=== PATIENT | female | born 1955 | race Hispanic/Latino ===

== ENCOUNTER → 2017-12-15 | Outpatient (CLI) | payer MEDICAID ==
[~2017-12-15] MED LIST: ASPI-1197 PO; FURO40TA7 PO; METO-408 PO; MIDO2.5T PO; SPIR25TA4 PO
== END | disposition home or self-care (01) ==
LOC: SHCH 13:53
PROVIDERS: ATTEND Internal Medicine Cardiovascular Disease
DX: I10 Essential (primary) hypertension (principal)
CPT/HCPCS: 93306

== ENCOUNTER → 2017-12-24 | Outpatient (CLI) | payer MEDICAID ==
[~2017-12-24] MED LIST changes: +REGADENOSON 0.4 MG/5 ML PF SYG IVP SCH
== END | disposition home or self-care (01) ==
LOC: SHCH 12:44
PROVIDERS: ATTEND Internal Medicine Cardiovascular Disease
DX: I10 Essential (primary) hypertension (principal)
CPT/HCPCS: 78452; 93017; 96374; A9500 ×2; J2785

== ENCOUNTER → 2018-05-07 | Outpatient (CLI) | payer MEDICAID ==
[~2018-05-07] MED LIST changes: -REGADENOSON 0.4 MG/5 ML PF SYG IVP SCH; -SPIR25TA4 PO; +SPIR25TA6 PO
== END | disposition home or self-care (01) ==
LOC: RAH 09:25
PROVIDERS: ATTEND Internal Medicine Gastroenterology
DX: K21.9 Gastro-esophageal reflux disease without esophagitis (principal)
CPT/HCPCS: 74240

== ENCOUNTER 2018-08-23 13:14 | Inpatient (IN) | payer MEDICAID ==
[~2018-08-23] VITALS: Ht 162.6 cm; Wt 73.9 kg
[2018-08-23] MEDS ORDERED: TRAZ-185 PO (14:39)
[2018-08-23] MEDS ORDERED: ESOM40CA PO (14:39)
[2018-08-23] MEDS ORDERED: CEPH500C2 PO (14:39)
[2018-08-23] MEDS ORDERED: SPIR100T5 PO (14:39)
[2018-08-23] MEDS ORDERED: DOCU-282 PO (14:39)
[2018-08-23] MEDS ORDERED: MAGN64TA9 PO (14:39)
[2018-08-23 15:10] LABS: BASOPHILS % (AUTO) 0.8 % (0.0-5.0); EOSINOPHILS % (AUTO) 1.8 % (0.0-8.0); HEMATOCRIT 25.2 % (36-48); LYMPHOCYTES % (AUTO) 19.2 % (21.0-51.0); MEAN CORPUSCULAR HEMOGLOBIN 22.9 pg (27.0-33.0); NEUTROPHILS % (AUTO) 66.2 % (40.0-77.0); NUCLEATED RED BLOOD CELLS 0.1 % (0.0-0.19); PLATELET COUNT (AUTO) 82 K/uL (130-400); RED CELL DISTRIBUTION WIDTH 19.3 % (11.0-15.5); WHITE BLOOD COUNT (AUTO) 2.5 K/uL (4.8-10.8)
[2018-08-23 15:21] LABS: CREATININE 1.5 mg/dL (0.5-1.5); POTASSIUM 4.1 mmol/L (3.5-5.1)
[2018-08-23 15:25] LABS: ALBUMIN 3.4 g/dL (3.5-5.0); BILIRUBIN,TOTAL 1.1 mg/dL (0.2-1.0); INR 1.17 (0.85-1.15); PARTIAL THROMBOPLASTIN TIME 31.2 SEC (26.3-35.5); PROTHROMBIN TIME 12.2 SEC (9.6-11.6); TOTAL PROTEIN, SERUM 7.9 g/dL (6.0-8.3)
[2018-08-23 15:46] LABS: BASOPHILS % (MANUAL) 2 % (0-2); LYMPHOCYTES % (MANUAL) 17 % (22-44); MONOCYTES % (MANUAL) 9 % (2-9); SEGMENTED NEUTROPHILS % 72 % (40-70)
[2018-08-23 15:50] LABS: PLATELET MORPHOLOGY COMMENT GIANT PLTS PRESENT
[2018-08-23 16:00] LABS: B-TYPE NATRIURETIC PEPTIDE 1370 pg/mL (0-100)
[2018-08-23] MEDS ORDERED: FUROSEMIDE 10 MG/ML 2ML VIAL ONE (17:20)
[2018-08-23 19:35] VITALS: BP 158/86
[2018-08-23] MEDS ORDERED: LIDOCAINE HCL-MPF 1% 2ML VIAL IJ PRN ×2 (20:15→21:15)
[2018-08-23] MEDS ORDERED: MORPHINE SULFATE 2 MG/ML 1ML SYG IVP PRN (20:15)
[2018-08-23] MEDS ORDERED: POTASSIUM CHLORIDE 10MEQ/100ML 100 ML IV PRN (20:15)
[2018-08-23] MEDS: PHARMACY COMMUNICATION MISC SCH (21:00)
[2018-08-23] MEDS ORDERED: POTASSIUM CHLORIDE 20MEQ/100ML 100 ML IV PRN (21:15)
[2018-08-23] MEDS ORDERED: POTASSIUM CHLORIDE 20 MEQ ERTAB PO PRN (21:15)
[2018-08-23] MEDS ORDERED: DIPHENHYDRAMINE HCL 25 MG CAPSULE PO PRN (21:15)
[2018-08-23] MEDS ORDERED: LACTULOSE 20 GM/30 ML UDCUP PO PRN (21:15)
[2018-08-23] MEDS ORDERED: GLUCAGON 1MG KIT 1 MG ML IM PRN (21:15)
[2018-08-23] MEDS ORDERED: CLONIDINE HCL 0.1 MG TABLET PO PRN (21:15)
[2018-08-23] MEDS ORDERED: POTASSIUM CHLORIDE 10% ELIXIR 20 MEQ/15 ML UDCUP PO PRN (21:15)
[2018-08-23] MEDS ORDERED: DEXTROSE 50%-WATER 50 ML DISP.SYRIN IV PRN (21:15)
[2018-08-23] MEDS ORDERED: METOPROLOL TARTRATE 25 MG TAB PO ONE (22:20)
[2018-08-23 23:27] VITALS: BP 116/46
[2018-08-24] MEDS ORDERED: ONDANSETRON HCL MDV 20ML 2 MG/ML VIAL IVP PRN (00:45)
[2018-08-24] MEDS ORDERED: FUROSEMIDE 10 MG/ML 2ML VIAL IVP SCH (01:00)
[2018-08-24 03:24] VITALS: BP 128/46
[2018-08-24 04:24] LABS: ALBUMIN 3.3 g/dL (3.5-5.0); BILIRUBIN,TOTAL 0.8 mg/dL (0.2-1.0); CREATININE 1.5 mg/dL (0.5-1.5); TOTAL PROTEIN, SERUM 7.9 g/dL (6.0-8.3); TROPONIN I 0.04 ng/mL (0.00-0.06)
[2018-08-24] MEDS: INSULIN R PO SSI SQ SCH ×4 (06:14→20:53)
[2018-08-24 07:33] VITALS: BP 149/41
[2018-08-24] MEDS: PHARMACY COMMUNICATION MISC SCH ×3 (08:58→20:53)
[2018-08-24] MEDS: METOLAZONE 2.5 MG TABLET PO SCH (09:01)
[2018-08-24] MEDS: FUROSEMIDE 10 MG/ML 2ML VIAL IVP SCH ×2 (09:01→16:14)
[2018-08-24] MEDS: METOPROLOL TARTRATE 25 MG TAB PO SCH ×4 (09:01→20:53)
[2018-08-24] MEDS ORDERED: LIDOCAINE HCL 1% 20 ML VIAL ONE (09:13)
[2018-08-24] MEDS: MAGNESIUM CHLORIDE 70 MG TABLET.SA PO SCH (09:37)
[2018-08-24] MEDS: PANTOPRAZOLE SODIUM 40 MG TABLET.DR PO SCH (09:39)
[2018-08-24] MEDS: DOCUSATE SODIUM 100 MG CAP PO SCH (09:40)
[2018-08-24] MEDS: SPIRONOLACTONE 25 MG TAB PO SCH (09:40)
[2018-08-24 11:26] VITALS: BP 120/46
[2018-08-24 12:19] LABS: APPEARANCE BODY FLUID CLEAR (CLEAR); COLOR,BODY FLUID LT YELLOW (LT YELLOW); SPECIMENTYPE,BODY FLUID THORACENTESIS; TOTAL VOLUME,BODY FLUID 536 mL
[2018-08-24 12:20] LABS: BODY FLUID RBC 1300 /cu. mm.; BODY FLUID WBC 98 /cu. mm.
[2018-08-24 12:23] LABS: BF BASOPHIL 1 %; BF LYMPHOCYTE 36 %; BF MESOTHELIAL 30 %; BF MONOCYTE 5 %
[2018-08-24 16:45] VITALS: BP 130/58
[2018-08-24] MEDS: ACETAMINOPHEN 325 MG TAB PO PRN (16:56)
[2018-08-24 19:38] VITALS: BP 150/57
[2018-08-24] MEDS: TRAZODONE HCL 50 MG TAB PO SCH (20:52)
[2018-08-24] MEDS: HYDROCODONE/ACETAMINOPHEN 5/325 MG TAB PO PRN (23:45)
[2018-08-24 23:53] VITALS: BP 109/56
[2018-08-25] MEDS: FUROSEMIDE 10 MG/ML 2ML VIAL IVP SCH ×3 (00:41→20:24)
[2018-08-25 03:40] LABS: B-TYPE NATRIURETIC PEPTIDE 1340 pg/mL (0-100)
[2018-08-25 03:42] LABS: CREATININE 1.5 mg/dL (0.5-1.5); POTASSIUM 3.9 mmol/L (3.5-5.1)
[2018-08-25 03:43] VITALS: BP 118/40
[2018-08-25 03:46] LABS: BASOPHILS % (AUTO) 0.7 % (0.0-5.0); EOSINOPHILS % (AUTO) 2.7 % (0.0-8.0); HEMATOCRIT 24.6 % (36-48); LYMPHOCYTES % (AUTO) 21.3 % (21.0-51.0); MEAN CORPUSCULAR HEMOGLOBIN 21.9 pg (27.0-33.0); MEAN CORPUSCULAR HGB CONC 29.4 g/dL (32.0-36.0); MEAN CORPUSCULAR VOLUME 74.5 fL (79-99); MONOCYTES % (AUTO) 12.2 % (3.0-13.0); NEUTROPHILS % (AUTO) 63.1 % (40.0-77.0); NUCLEATED RED BLOOD CELLS 0.2 % (0.0-0.19); PLATELET COUNT (AUTO) 66 K/uL (130-400); RED CELL DISTRIBUTION WIDTH 19.2 % (11.0-15.5)
[2018-08-25 04:44] LABS: EOSINOPHILS % (MANUAL) 4 % (1-6); LYMPHOCYTES % (MANUAL) 22 % (22-44); MONOCYTES % (MANUAL) 8 % (2-9); REACTIVE LYMPHOCYTES 1 % (0-0); SEGMENTED NEUTROPHILS % 65 % (40-70)
[2018-08-25 04:46] LABS: MAN.DIFF COMMENT-IMPRESSION MANUAL DIFFERENTIAL
[2018-08-25 04:48] LABS: PLATELET MORPHOLOGY COMMENT DECREASED
[2018-08-25] MEDS: INSULIN R PO SSI SQ SCH ×4 (05:35→21:00)
[2018-08-25] MEDS: PANTOPRAZOLE SODIUM 40 MG TABLET.DR PO SCH (06:26)
[2018-08-25 07:30] VITALS: BP 116/51
[2018-08-25] MEDS ORDERED: LIDOCAINE HCL 1% 20 ML VIAL ONE (08:51)
[2018-08-25] MEDS: PHARMACY COMMUNICATION MISC SCH ×3 (09:00→21:00)
[2018-08-25] MEDS: METOPROLOL TARTRATE 25 MG TAB PO SCH ×4 (09:00→21:00)
[2018-08-25] MEDS: SPIRONOLACTONE 25 MG TAB PO SCH (09:39)
[2018-08-25] MEDS: HYDROCODONE/ACETAMINOPHEN 5/325 MG TAB PO PRN (09:39)
[2018-08-25] MEDS: METOLAZONE 2.5 MG TABLET PO SCH (09:39)
[2018-08-25] MEDS: DOCUSATE SODIUM 100 MG CAP PO SCH (09:39)
[2018-08-25] MEDS: MAGNESIUM CHLORIDE 70 MG TABLET.SA PO SCH (09:43)
[2018-08-25 13:24] LABS: APPEARANCE BODY FLUID CLEAR (CLEAR); BODY FLUID RBC 100 /cu. mm.; BODY FLUID WBC 77 /cu. mm.; COLOR,BODY FLUID YELLOW (LT YELLOW); SPECIMENTYPE,BODY FLUID PLEURAL; TOTAL VOLUME,BODY FLUID 1200 mL
[2018-08-25 13:37] LABS: BF LYMPHOCYTE 51 %; BF MESOTHELIAL 31 %; BF MONOCYTE 13 %
[2018-08-25 16:18] VITALS: BP 103/36
[2018-08-25 20:00] VITALS: BP 121/46
[2018-08-25] MEDS: TRAZODONE HCL 50 MG TAB PO SCH (20:23)
[2018-08-26] VITALS (7 sets, daily range): BP systolic 108–119; BP diastolic 40–56
[2018-08-26 03:55] LABS: CREATININE 1.7 mg/dL (0.5-1.5); POTASSIUM 4.3 mmol/L (3.5-5.1)
[2018-08-26] MEDS: PANTOPRAZOLE SODIUM 40 MG TABLET.DR PO SCH (06:42)
[2018-08-26] MEDS: INSULIN R PO SSI SQ SCH ×4 (07:30→21:00)
[2018-08-26] MEDS: PHARMACY COMMUNICATION MISC SCH (08:21)
[2018-08-26] MEDS: DOCUSATE SODIUM 100 MG CAP PO SCH (10:01)
[2018-08-26] MEDS: SPIRONOLACTONE 25 MG TAB PO SCH (10:07)
[2018-08-26] MEDS: METOLAZONE 2.5 MG TABLET PO SCH (10:07)
[2018-08-26] MEDS: METOPROLOL TARTRATE 25 MG TAB PO SCH (10:08)
[2018-08-26] MEDS: FUROSEMIDE 10 MG/ML 2ML VIAL IVP SCH ×2 (10:08→20:22)
[2018-08-26] MEDS: MAGNESIUM CHLORIDE 70 MG TABLET.SA PO SCH (10:08)
[2018-08-26] MEDS: TRAZODONE HCL 50 MG TAB PO SCH (20:21)
[2018-08-27 03:33] LABS: HEMATOCRIT 22.4 % (36-48); MEAN CORPUSCULAR HEMOGLOBIN 22.6 pg (27.0-33.0); MEAN CORPUSCULAR HGB CONC 30.7 g/dL (32.0-36.0); MEAN CORPUSCULAR VOLUME 73.6 fL (79-99); PLATELET COUNT (AUTO) 74 K/uL (130-400); RED BLOOD CELL COUNT(AUTO) 3.04 MIL/uL (4.00-5.50); RED CELL DISTRIBUTION WIDTH 19.1 % (11.0-15.5)
[2018-08-27 03:45] LABS: INR 1.2 (0.85-1.15); PARTIAL THROMBOPLASTIN TIME 29.5 SEC (26.3-35.5); PROTHROMBIN TIME 12.6 SEC (9.6-11.6)
[2018-08-27 03:51] VITALS: BP 120/43
[2018-08-27 03:57] LABS: ALBUMIN 2.8 g/dL (3.5-5.0); BILIRUBIN,TOTAL 0.7 mg/dL (0.2-1.0); CREATININE 1.8 mg/dL (0.5-1.5); MAGNESIUM 1.6 mg/dL (1.80-2.40); POTASSIUM 4.1 mmol/L (3.5-5.1); THYROID STIMULATING HORMONE 1.87 uIU/mL (0.36-3.74); TOTAL PROTEIN, SERUM 6.9 g/dL (6.0-8.3)
[2018-08-27] MEDS: PANTOPRAZOLE SODIUM 40 MG TABLET.DR PO SCH (06:07)
[2018-08-27 07:27] VITALS: BP 126/50
[2018-08-27] MEDS: INSULIN R PO SSI SQ SCH ×4 (07:30→21:00)
[2018-08-27] MEDS ORDERED: FUROSEMIDE 10 MG/ML 4ML VIAL IV SCH (08:00)
[2018-08-27] MEDS: SPIRONOLACTONE 25 MG TAB PO SCH (08:49)
[2018-08-27] MEDS: FUROSEMIDE 10 MG/ML 2ML VIAL IVP SCH ×2 (08:49→22:19)
[2018-08-27] MEDS: DOCUSATE SODIUM 100 MG CAP PO SCH (08:49)
[2018-08-27] MEDS: HYDROCODONE/ACETAMINOPHEN 5/325 MG TAB PO PRN ×2 (08:50→22:26)
[2018-08-27] MEDS: MAGNESIUM CHLORIDE 70 MG TABLET.SA PO SCH (08:53)
[2018-08-27 11:31] VITALS: BP 104/54
[2018-08-27] MEDS ORDERED: BENZOCAINE/MENTH/CETYLPYRD CL 1 EACH LOZENGE MM PRN (15:15)
[2018-08-27 16:32] VITALS: BP 114/49
[2018-08-27] MEDS: IPRATROPIUM/ALBUTEROL SULFATE 3 ML SOLUTION IH SCH ×2 (18:42→23:13)
[2018-08-27] MEDS: ACETAMINOPHEN 325 MG TAB PO PRN (18:57)
[2018-08-27 19:35] VITALS: BP 129/55
[2018-08-27] MEDS: TRAZODONE HCL 50 MG TAB PO SCH (22:19)
[2018-08-27 23:51] VITALS: BP 105/48
[2018-08-28 03:59] VITALS: BP 125/48
[2018-08-28 04:04] LABS: CREATININE 1.6 mg/dL (0.5-1.5); POTASSIUM 4.1 mmol/L (3.5-5.1)
[2018-08-28 04:33] LABS: % IRON SATURATION 7.8 % (22-44)
[2018-08-28] MEDS: IPRATROPIUM/ALBUTEROL SULFATE 3 ML SOLUTION IH SCH ×3 (06:01→19:40)
[2018-08-28] MEDS: PANTOPRAZOLE SODIUM 40 MG TABLET.DR PO SCH (06:34)
[2018-08-28] MEDS: INSULIN R PO SSI SQ SCH ×4 (06:34→21:00)
[2018-08-28 07:37] LABS: HEMATOCRIT 25.2 % (36-48); MEAN CORPUSCULAR HGB CONC 30.9 g/dL (32.0-36.0); MEAN CORPUSCULAR VOLUME 74.6 fL (79-99); NUCLEATED RED BLOOD CELLS 0.2 % (0.0-0.19); PLATELET COUNT (AUTO) 60 K/uL (130-400); RED BLOOD CELL COUNT(AUTO) 3.38 MIL/uL (4.00-5.50); RED CELL DISTRIBUTION WIDTH 18.7 % (11.0-15.5); WHITE BLOOD COUNT (AUTO) 2.5 K/uL (4.8-10.8)
[2018-08-28 07:48] VITALS: BP 121/41
[2018-08-28 08:19] LABS: LYMPHOCYTES % (MANUAL) 22 % (22-44); MONOCYTES % (MANUAL) 7 % (2-9)
[2018-08-28 08:21] LABS: PLATELET MORPHOLOGY COMMENT DECREASED; SEGMENTED NEUTROPHILS % 71 % (40-70)
[2018-08-28 08:22] LABS: MAN.DIFF COMMENT-IMPRESSION MANUAL DIFFERENTIAL
[2018-08-28] MEDS: MAGNESIUM CHLORIDE 70 MG TABLET.SA PO SCH (10:35)
[2018-08-28] MEDS: DOCUSATE SODIUM 100 MG CAP PO SCH (10:35)
[2018-08-28] MEDS: SPIRONOLACTONE 25 MG TAB PO SCH (10:35)
[2018-08-28] MEDS: FUROSEMIDE 10 MG/ML 2ML VIAL IVP SCH ×2 (10:36→21:35)
[2018-08-28 11:29] VITALS: BP 122/52
[2018-08-28 16:22] VITALS: BP 118/51
[2018-08-28] MEDS: TRAZODONE HCL 50 MG TAB PO SCH (21:35)
[2018-08-28 23:41] VITALS: BP 100/49
[2018-08-29] MEDS: IPRATROPIUM/ALBUTEROL SULFATE 3 ML SOLUTION IH SCH
[2018-08-29] MEDS ORDERED: METOPROLOL TARTRATE 25 MG TAB ONE (00:29)
[2018-08-29] MEDS: METOPROLOL TARTRATE 25 MG TAB PO SCH ×3 (00:30→19:47)
[2018-08-29 03:33] VITALS: BP 99/56
[2018-08-29] MEDS: INSULIN R PO SSI SQ SCH ×4 (06:21→21:00)
[2018-08-29] MEDS: PANTOPRAZOLE SODIUM 40 MG TABLET.DR PO SCH (06:25)
[2018-08-29 07:51] VITALS: BP 103/57
[2018-08-29] MEDS: DOCUSATE SODIUM 100 MG CAP PO SCH (09:21)
[2018-08-29] MEDS: SPIRONOLACTONE 25 MG TAB PO SCH (09:22)
[2018-08-29] MEDS: FUROSEMIDE 10 MG/ML 2ML VIAL IVP SCH ×2 (09:22→19:48)
[2018-08-29] MEDS: MAGNESIUM CHLORIDE 70 MG TABLET.SA PO SCH (09:28)
[2018-08-29] MEDS: IPRATROPIUM 0.5 MG/2.5 ML INH IH SCH ×3 (11:22→23:39)
[2018-08-29 11:39] VITALS: BP 105/51
[2018-08-29 17:08] VITALS: BP 107/46
[2018-08-29 19:00] VITALS: BP 100/49
[2018-08-29] MEDS: HYDROCODONE/ACETAMINOPHEN 5/325 MG TAB PO PRN (19:48)
[2018-08-29] MEDS: TRAZODONE HCL 50 MG TAB PO SCH (19:48)
[2018-08-29 23:00] VITALS: BP 108/50
[2018-08-30] MEDS: METOPROLOL TARTRATE 25 MG TAB PO SCH ×4 (00:30→23:52)
[2018-08-30 03:00] VITALS: BP 95/51
[2018-08-30] MEDS: INSULIN R PO SSI SQ SCH ×4 (04:20→20:52)
[2018-08-30] MEDS: IPRATROPIUM 0.5 MG/2.5 ML INH IH SCH ×4 (06:25→23:36)
[2018-08-30] MEDS: PANTOPRAZOLE SODIUM 40 MG TABLET.DR PO SCH (06:49)
[2018-08-30 07:37] VITALS: BP 99/46
[2018-08-30] MEDS: MAGNESIUM CHLORIDE 70 MG TABLET.SA PO SCH (08:12)
[2018-08-30] MEDS: SPIRONOLACTONE 25 MG TAB PO SCH (08:12)
[2018-08-30] MEDS: DOCUSATE SODIUM 100 MG CAP PO SCH (08:12)
[2018-08-30] MEDS: FUROSEMIDE 10 MG/ML 2ML VIAL IVP SCH ×2 (08:16→21:43)
[2018-08-30 11:19] VITALS: BP 106/56
[2018-08-30] MEDS ORDERED: ALBU1.252 IH (14:52)
[2018-08-30] MEDS ORDERED: IPRNEB IH (14:52)
[2018-08-30] MEDS ORDERED: PROP10TA10 PO (14:52)
[2018-08-30] MEDS ORDERED: LACT10SO PO (14:52)
[2018-08-30 16:18] VITALS: BP 94/45
[2018-08-30 19:54] VITALS: BP 98/51
[2018-08-30] MEDS: TRAZODONE HCL 50 MG TAB PO SCH (20:48)
[2018-08-30 23:35] VITALS: BP 120/56
[2018-08-31 04:06] VITALS: BP 106/49
[2018-08-31] MEDS: INSULIN R PO SSI SQ SCH (05:22)
[2018-08-31] MEDS: PANTOPRAZOLE SODIUM 40 MG TABLET.DR PO SCH (06:01)
[2018-08-31] MEDS: IPRATROPIUM 0.5 MG/2.5 ML INH IH SCH ×2 (06:29→11:21)
[2018-08-31 07:45] VITALS: BP 96/65
[2018-08-31] MEDS: DOCUSATE SODIUM 100 MG CAP PO SCH (09:10)
[2018-08-31] MEDS: FUROSEMIDE 10 MG/ML 2ML VIAL IVP SCH (09:11)
[2018-08-31] MEDS: MAGNESIUM CHLORIDE 70 MG TABLET.SA PO SCH (09:11)
[2018-08-31] MEDS: METOPROLOL TARTRATE 25 MG TAB PO SCH (09:11)
[2018-08-31] MEDS: SPIRONOLACTONE 25 MG TAB PO SCH (09:11)
[2018-08-31 12:14] VITALS: BP 156/53
== END 2018-08-31 12:27 | disposition home or self-care (01) | DRG 194 ==
LOC: EDH 13:14 → EDHIP 14:55 → UNDOADMIN 14:55 → 2BH 18:59 → EDHIP 18:59 → 2DH 08-25 18:21
PROVIDERS: ADMIT Internal Medicine Critical Care Medicine; ATTEND Internal Medicine Critical Care Medicine
PROC: 0W9B3ZZ Drainage of Left Pleural Cavity, Percutaneous Approach (ICD-10-PCS; principal; 2018-08-24)
PROC: 0W993ZZ Drainage of Right Pleural Cavity, Percutaneous Approach (ICD-10-PCS; 2018-08-25)
PROC: 30233N1 Transfusion of Nonautologous Red Blood Cells into Peripheral Vein, Percutaneous Approach (ICD-10-PCS; 2018-08-27)
DX: I13.0 Hypertensive heart and chronic kidney disease with heart failure and stage 1 through stage 4 chronic kidney disease, or unspecified chronic kidney disease (principal); J96.01 Acute respiratory failure with hypoxia; E43 Unspecified severe protein-calorie malnutrition; D61.818 Other pancytopenia; D68.9 Coagulation defect, unspecified; J90 Pleural effusion, not elsewhere classified; E66.01 Morbid (severe) obesity due to excess calories; K76.6 Portal hypertension; I50.33 Acute on chronic diastolic (congestive) heart failure; J94.8 Other specified pleural conditions; D69.6 Thrombocytopenia, unspecified; K74.60 Unspecified cirrhosis of liver; N18.3 Chronic kidney disease, stage 3 (moderate); D50.9 Iron deficiency anemia, unspecified; D73.1 Hypersplenism; Z68.28 Body mass index [BMI] 28.0-28.9, adult; R22.2 Localized swelling, mass and lump, trunk; Z85.3 Personal history of malignant neoplasm of breast; D64.9 Anemia, unspecified; D72.829 Elevated white blood cell count, unspecified; J44.9 Chronic obstructive pulmonary disease, unspecified; M41.9 Scoliosis, unspecified; F41.9 Anxiety disorder, unspecified
CPT/HCPCS: 36415; 71045; 71046; 76705; 80048; 80053; 82550; 82728; 82948; 83540; 83550; 83615; 83735; 83874; 83880; 84155; 84157; 84443; 84484; 85025; 85027; 85378; 85610; 85730; 86156; 86850; 86870; 86900; 86901; 86922; 87071; 87205; 88108; 88305; 89051; 93005; 93306; 93970; 94640; 94664; 94760; 97039; C1729; J1940; P9016